=== PATIENT | male | born 1955 | race Caucasian/White ===

== ENCOUNTER 2017-06-23 08:45 | Inpatient (IN) | payer OTHER ==
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
[2017-06-29] MEDS ORDERED: CEFAZOLIN/Water 2 GM/20 ML SYRINGE ONE (07:42)
[2017-06-29] MEDS ORDERED: Tranexamic Acid 1,000 MG/100 ML BAG ONE ×2 (07:42→12:31)
[2017-06-29] MEDS ORDERED: Vancomycin HCl 1.5 GM, Admixture Fee 1 EACH in Sodium Chloride 0.9% 250 ML 300 ML IVPB SCH (07:45)
[2017-06-29] MEDS ORDERED: Ropivacaine 0.2% HCl/PF 20 ML ONE (07:54)
[2017-06-29] MEDS ORDERED: Midazolam HCl 2 mg/2 ml Vial ONE (07:54)
[2017-06-29] MEDS ORDERED: Fentanyl 100 MCG/2 ML VIAL ONE (07:54)
[2017-06-29] MEDS ORDERED: Ondansetron HCl/PF 4 MG/2 ML Vial IVP PRN ×3 (08:17→13:14)
[2017-06-29] MEDS ORDERED: Ketorolac Tromethamine 30 MG/ML VIAL IVP PRN (08:17)
[2017-06-29] MEDS ORDERED: HYDROcodone/Acetaminophen 10/325 mg Tablet PO PRN ×3 (08:17→13:14)
[2017-06-29] MEDS ORDERED: traMADol HCl 50 MG TAB PO PRN ×3 (08:17→13:14)
[2017-06-29] MEDS ORDERED: Zolpidem Tartrate 5 MG TAB PO PRN ×2 (08:17→13:14)
[2017-06-29] MEDS ORDERED: Promethazine HCl 25 MG/ML VIAL IM PRN ×2 (08:17→11:37)
[2017-06-29] MEDS ORDERED: Fentanyl 100 MCG/2 ML VIAL IV PRN (08:18)
[2017-06-29] MEDS ORDERED: Dexamethasone 20 MG/5 ML VIAL ONE (09:51)
[2017-06-29] MEDS ORDERED: Ondansetron HCl/PF 4 MG/2 ML Vial ONE (09:51)
[2017-06-29] MEDS ORDERED: Propofol 200 MG/20 ML VIAL ONE (09:51)
[2017-06-29] MEDS ORDERED: Lidocaine 2% PF 10 ML AMP (For Epidural Use) ONE (09:51)
[2017-06-29] MEDS ORDERED: Ketorolac Tromethamine 30 MG/ML VIAL ONE (09:51)
[2017-06-29] MEDS ORDERED: Bupivacaine 0.25% HCL 30 ML VIAL ONE (10:20)
[2017-06-29] MEDS ORDERED: Lidocaine 2% w/Epinephrine 1:200K 20 ML VIAL ONE (10:20)
[2017-06-29] MEDS ORDERED: HYDROmorphone 2 MG/ML VIAL SLOW IVP PRN (11:37)
[2017-06-29] MEDS ORDERED: Promethazine HCl 25 MG/ML VIAL SLOW IVP PRN ×2 (11:37→13:14)
[2017-06-29] MEDS ORDERED: Tranexamic Acid 1,000 MG in Sodium Chloride 0.9% 100 ML IVPB SCH ×2 (11:45→13:14)
--- NOTE | 2017-06-29 12:07 | OP ---
DATE OF PROCEDURE: 06/29/2017 PREOPERATIVE DIAGNOSIS: End-stage tricompartmental osteoarthritis, left knee. POSTOPERATIVE DIAGNOSIS: End-stage tricompartmental osteoarthritis, left knee. OPERATIVE PROCEDURE: Cemented cruciate-sparing computer-assisted navigated left total knee arthropl jake. SURGEON: Prateek Crawford M.D. PUBLIC ADDRESS SYSTEM INSTALLER: Dallas Tripathi PA-C. ANESTHESIA: General via LMA augmented with indwelling adductor canal peripheral block and single sh ot sciatic block. COMPONENTS USED: [place] [employer] cemented cruciate-sparing size 4 femoral component with cemented size 3 universal tibial baseplate, a 9 mm polyethylene fixed bearing insert, A29 patellar button. FINDINGS: End-stage severe degenerative tricompartmental disease, bone on bone arthrosis, periartic ular osteophyte formation, largest serous effusion, hypertrophic synovium. DRAINS: None. SPECIMENS: None. COMPLICATIONS: None. COUNTS: Correct. ESTIMATED BLOOD LOSS: Less than 100. TOURNIQUET TIME: 67 minutes at 300 mmHg. INDICATIONS FOR SURGERY: Wyatt is a 62-year-old white male who has had progressive left knee pain amplified with standing and walking for the last 5-7 years. She has failed conservative management and elected to proceed with total knee arthroplasty as definitive treatment of pain. PROCEDURE IN DETAIL: After informed consent was obtained in the preoperative holding area. The pat ient was taken to the operative suite where general anesthesia was induced. Once adequate level of general anesthesia was obtained, the patient was positioned and a well-padded tourniquet was placed around the left proximal thigh. The left lower extremity was then prepped and draped in the usual s terile fashion. Prior to exsanguination, a time out was called and all members of the surgical team agreed upon site, surgeon, and patient. The extremity was then exsanguinated and the tourniquet wa s raised. A midline longitudinal incision was then made directly over the patella extending two fin gerbreadths above the superior pole of the patella and two fingerbreadths inferior to the inferior p atellar pole of the patella. Deeper subcutaneous layers were dissected sharply and local bleeding w as controlled with Bovie electrocautery. A quad tendon longitudinal split was then made sharply and a median parapatellar arthrotomy was carried out both sharp and with Bovie electrocautery, carried down to one fingerbreadth medial to the tibial tubercle. The knee was then placed into flexion and the patella was everted nicely, and a copious fat pad ectomy was performed allowing for greater expo sure of the tibia. The computer-assisted distal femoral fiducial was then placed and pinned firmly, and the distal femoral cutting guide was pinned firmly into place. The oscillating saw was then us ed to remove the appropriate amount of bone. The 4-in-1 cutting block was then placed on the distal femur and the oscillating saw was used to remove the appropriate amount of bone off of the anterior , posterior, and chamfer cuts. After completion of bone cuts, the anterior cruciate ligament was re sected sharply and the posterior cruciate ligament retractor was placed and the tibia was subluxed f or better exposure. Partial meniscectomies were carried out, and the tibial computer-assisted fiduc ial was pinned, and the cutting guide was placed. Oscillating saw was then used to remove the bone with Hohmann retractors used to take care and protect the collateral ligaments. After the tibial re section was performed, a laminar grader marker was placed in between the freshened bone cuts. The knee p laced at 90 degrees and further bilateral meniscectomies were carried out, and the curved osteotome and curettage was used to remove any excess bone spurs in the posterior compartment. The trial femo ral component, tibial baseplate were placed with the appropriate polyethylene trial insert with an a ppropriate polyethylene spacer and patellar button. The knee was taken through full range of motion with flexion and extension from 0-90 degrees and patellar broach squarely in the trochlea without a ny squinting or subluxation noted. The knee was also stable to varus and valgus stressing at 0, 15, 45, and 90 degrees of flexion. The drawer was negative. All trial components were then removed and the keel punch was used to provide the appropriate defect in the tibia with a mallet. The freshene d bone cuts were copiously irrigated with pulsatile lavage of about 1-1/2 liters to remove all exces s debris. The freshened bone cuts were then dried and with suction and lap sponge. The knee was pl aced in flexion and retractors were placed to provide access to all bone cuts. Tobramycin impregnat ed methyl methacrylate cement was then placed on the freshened bone cuts and implants which were mal leted firmly into place. Curettage and [place] elevators were used to remove any excess bone cement. The knee was placed into full extension and the patellar button was placed under compression, and t he cement was allowed to cure. Once completed, the components were again taken through full range o f motion and copious irrigation of the knee was carried out with another liter of normal saline. Al l components were inspected fully with full range of motion and varus and valgus stressing. There wa s no laxity noted and full extension was observed clinically. Primary closure was accomplished with #2 interrupted Vicryl stitch of the arthrotomy defect. This was oversewn with a #2 running Quill b arbed stitch. The subcutaneous layer was then closed with a running 0 barbed Monocryl stitch and sk in closure accomplished with a running subcuticular 3-0 Monocryl barbed Quill stitch and augmented w ith cement on the skin. Tourniquet was lowered. Good spontaneous return of distal pulses was noted clinically and a sterile dressing was applied to the incision. The procedure was terminated withou t any complications. The patient was awakened in the operative suite and taken to the recovery room in stable condition.
[2017-06-29] MEDS ORDERED: Acetaminophen 325 MG TAB PO PRN (13:14)
[2017-06-29] MEDS ORDERED: Fentanyl 100 MCG/2 ML VIAL SLOW IVP PRN ×2 (13:14)
[2017-06-29] MEDS ORDERED: diphenhydrAMINE 25 MG CAP PO PRN (13:14)
[2017-06-29] MEDS ORDERED: Ketorolac Tromethamine 30 MG/ML VIAL IVP SCH (14:00)
[2017-06-29] MEDS: Sodium Chloride 0.9% 1,000 ML IV SCH ×2 (14:44→20:28)
--- NOTE | 2017-06-29 15:57 | RAD ---
RADIOGRAPH LEFT KNEE TWO VIEWS: History: 62-year-old female with left knee pain, status post surgery. FINDINGS: Metallic prostheses cover the articular surfaces of the distal femur and tibial plateau. Resurfacing changes of the posterior aspect of the patella. Moderate amount of joint fluid with subcutaneous em physema and gas in the joint space, especially suprapatellar region, anteriorly. IMPRESSION: Immediately status post total left knee replacement arthroplasty. POS: [facility]
[2017-06-29] MEDS: CEFAZOLIN/Water 2 GM/20 ML SYRINGE SLOW IVP SCH (16:34)
[2017-06-29 17:28] LABS: Troponin I Less than 0.010 ng/mL (< 0.028)
--- NOTE | 2017-06-29 18:00 | PDOC.PN ---
- Subjective Encounter Start Date: 06/29/17 Encounter Start Time: 18:01 Pt seen for managment of medical comorbidities, including tachycardia. Patient denies chest pain or shortness of breath. Reports pain at surgical site as 2/ 10. denies palpitations. - Objective MAR Reviewed: Yes Vital Signs & Weight: Weight Weight 164 lb EKG Reviewed by me: Yes (EKG: sinus tachycardia) Phys Exam - Physical Examination Constitutional: NAD HEENT: sclera anicteric, oral pharynx no lesions Dry mucosae Neck: supple Respiratory: no wheezing, no rales, no rhonchi, clear to auscultation bilateral S1, S2, tachy, regular Gastrointestinal: soft, positive bowel sounds Musculoskeletal: pulses present s/p L knee surgery Neurological: moves all 4 limbs Psychiatric: normal affect Skin: no rash, normal turgor, cap refill <2 seconds Dx/Plan (1) Tachycardia Code(s): R00.0 - TACHYCARDIA, UNSPECIFIED Status: Acute (2) Arthritis Code(s): M19.90 - UNSPECIFIED OSTEOARTHRITIS, UNSPECIFIED SITE Status: Chronic - Plan * . Check TSH. First troponin normal, recheck. Pt denies any chest pain or palpitations. Clinically appears to be dehydrated, continue IV fluids. Review of Systems - Review of Systems Constitutional: negative: Fever, Chills, Sweats, Weakness, Malaise Respiratory: negative: Cough, Dry, Shortness of Breath, Hemoptysis, SOB with Excertion, Pleuritic Pain, Sputum, Wheezing Cardiovascular: negative: Chest Pain, Palpitations, Orthopnea, Paroxysmal Noc. Dyspnea, Edema, Light Headedness Musculoskeletal: Other (knee pain) - Medications/Allergies Allergies/Adverse Reactions: Allergies Allergy/AdvReac Type Severity Reaction Status Date / Time No Known Allergies Allergy Unverified 06/23/17 09:29 Medications: Current Medications Acetaminophen (Tylenol) 650 mg PO Q4H PRN PRN Reason: SHETH/ T > 101F; Mild Pain (1-3) Hydrocodone Bitart/Acetaminophen ([place] 10/325) 1 tab PO Q4H PRN PRN Reason: Pain (1-3) Last Admin: 06/29/17 16:25 Dose: 1 tab Hydrocodone Bitart/Acetaminophen ([place]vo 10/325) 2 tab PO Q4H PRN PRN Reason: PAIN (4-6) Aspirin (Aspirin Chewable) 81 mg PO BID [facility] Calcium/Vitamin D (Caltrate 600 + Vit D) 4 tab PO DAILY [facility] Cefazolin Sodium (Ancef) 2 gm SLOW IVP Q8H [facility] Stop: 06/30/17 00:01 Last Admin: 06/29/17 16:34 Dose: 2 gm Diphenhydramine HCl (Benadryl) 25 mg PO Q6H PRN PRN Reason: Itching Fentanyl (Sublimaze) 50 mcg IV Q1H PRN PRN Reason: BT PAIN Fentanyl (Sublimaze) 100 mcg SLOW IVP Q1H PRN PRN Reason: Severe Pain (7-10) Ferrous Gluconate (Fergon) 324 mg PO BID [facility] Fish Oil (Fish Oil) 2,000 mg PO DAILY [facility] Ropivacaine 250 ml/ Device 250 mls @ 0 mls/hr NERVE BLCK INF [facility] PRN Reason: As Directed Sodium Chloride (Normal Saline 0.9%) 1,000 mls @ 100 mls/hr IV .Q10H [facility] Last Admin: 06/29/17 14:44 Dose: 1,000 mls Vancomycin HCl 1.5 gm/ Sodium (Chloride) 300 mls @ 200 mls/hr IVPB ONE [facility] Stop: 06/29/17 23:59 Iron/Minerals/Multivitamins (Theragran M) 1 tab PO DAILY [facility] Ketorolac Tromethamine (Toradol) 15 mg IVP Q6H PRN PRN Reason: Moderate Pain (4-6) Stop: 07/02/17 08:18 Ketorolac Tromethamine (Toradol) 30 mg IVP Q8H [facility] Stop: 07/04/17 20:01 Loratadine (Claritin) 10 mg PO DAILY [facility] Ondansetron HCl (Zofran) 4 mg IVP Q6H PRN PRN Reason: Nausea/Vomiting Promethazine HCl (Phenergan) 12.5 mg IM Q4H PRN PRN Reason: Nausea Promethazine HCl (Phenergan) 12.5 mg SLOW IVP Q4H PRN PRN Reason: Nausea/Vomiting Senna/Docusate Sodium (Senokot S) 2 tab PO BID [facility] Sodium Chloride (Flush - Normal Saline) 10 ml IVF Q12HR [facility] Last Admin: 06/29/17 14:40 Dose: Not Given Sodium Chloride (Flush - Normal Saline) 10 ml IVF PRN PRN PRN Reason: Saline Flush Tramadol HCl (Ultram) 50 mg PO Q6H PRN PRN Reason: Mild Pain (1-3) Tramadol HCl (Ultram) 100 mg PO Q6H PRN PRN Reason: Moderate Pain 4-6 Zinc Sulfate (Zinc Sulfate) 220 mg PO DAILY [facility] Zolpidem Tartrate (Ambien) 5 mg PO HSPRN PRN PRN Reason: Insomnia
[2017-06-29 18:40] LABS: #Lymphocytes 0.4 thou/uL (1.20-3.40); #Monocytes 0.1 thou/uL (0.11-0.59); #Neutrophils 9.5 thou/uL (1.40-6.50); %Basophils 0.1 % (0.0-1.0); %Eosinophils 0.1 % (0.0-10.0); %Lymphocytes 4.3 % (21.0-51.0); %Monocytes 0.7 % (0.0-10.0); Hematocrit 44.6 % (42.0-52.0); Mean Platelet Volume 9.8 fL (7.4-10.4); Red Blood Cell (RBC) Count 4.93 mill/uL (4.70-6.10)
[2017-06-29 19:03] LABS: ALT (SGPT) 24 U/L (8-55); AST (SGOT) 31 U/L (5-34); Alkaline Phosphatase 81 U/L (40-150); Anion Gap 13 mmol/L (10-20); BUN (Urea Nitrogen) 19 mg/dL (8.4-25.7); Bilirubin, Total 0.2 mg/dL (0.2-1.2); Calc. Creatinine Clearance 71 mL/min (70-130); Calcium 8.6 mg/dL (7.8-10.44); Carbon Dioxide 21 mmol/L (23-31); Chloride 108 mmol/L (98-107); Estimated GFR-MDRD 67; Protein, Total 6.5 g/dL (5.8-8.1)
[2017-06-29 19:44] LABS: Lactic Acid - Sepsis 1.5 mmol/L (0.5-2.2)
[2017-06-29] MEDS ORDERED: Vancomycin HCl 1.5 GM in Sodium Chloride 0.9% 250 ML 300 ML IVPB SCH (20:00)
[2017-06-29] MEDS: Ferrous Gluconate 324 MG TAB PO SCH (20:28)
[2017-06-29] MEDS: Senokot S 8.6-50 MG TAB PO SCH (20:29)
[2017-06-29] MEDS: Ketorolac Tromethamine 30 MG/ML VIAL IVP SCH (20:30)
[2017-06-29] MEDS: Ropivacaine HCl/PF 250 ML in Premix Bag 1 BAG NERVE BLCK SCH (20:59)
[2017-06-30] MEDS: CEFAZOLIN/Water 2 GM/20 ML SYRINGE SLOW IVP SCH (00:36)
[2017-06-30] MEDS: Ketorolac Tromethamine 30 MG/ML VIAL IVP SCH ×3 (05:00→20:52)
[2017-06-30 07:10] LABS: Hematocrit 38.7 % (42.0-52.0); Mean Platelet Volume 10.5 fL (7.4-10.4); Red Blood Cell (RBC) Count 4.13 mill/uL (4.70-6.10); White Blood Cell (WBC) Count 12.1 thou/uL (4.8-10.8)
--- NOTE | 2017-06-30 08:41 | PDOC.PN ---
- Subjective Encounter Start Date: 06/30/17 Encounter Start Time: 08:39 Subjective: feels well. no chest pain/SOB.no fever/chills. -: pain controlled better - Objective MAR Reviewed: Yes Vital Signs & Weight: Vital Signs (12 hours) Temp Pulse Resp BP Pulse Ox 06/30/17 04:00 97.8 F 74 18 158/92 H 97 06/30/17 00:31 97.8 F 100 18 146/88 H 94 L Weight Weight 164 lb I&O: 06/29/17 06/30/17 07/01/17 06:59 06:59 06:59 Intake Total 3172 Output Total 800 Balance 2372 Result Diagrams: 06/30/17 06:05 06/29/17 18:28 Additional Labs: Laboratory Tests 06/29/17 06/29/17 06/29/17 16:43 18:28 18:28 WBC 10.0 Plt Count 141 Lactic Acid Troponin I Less than 0.010 TSH 3rd Generation 0.7831 06/29/17 06/30/17 19:16 06:05 WBC 12.1 H Plt Count 126 L Lactic Acid 1.5 Troponin I TSH 3rd Generation Phys Exam - Physical Examination Constitutional: NAD HEENT: PERRLA, moist MMs, sclera anicteric, oral pharynx no lesions Neck: no nodes, no JVD, supple, full ROM Respiratory: no wheezing, no rales, no rhonchi, clear to auscultation bilateral Cardiovascular: RRR, no significant murmur, no rub, gallop Gastrointestinal: soft, non-tender, no distention, positive bowel sounds Musculoskeletal: no edema, pulses present s/p L TKR Neurological: non-focal, normal sensation, moves all 4 limbs Psychiatric: normal affect, A&O x 3 Skin: no rash Dx/Plan (1) Leucocytosis Code(s): D72.829 - ELEVATED WHITE BLOOD CELL COUNT, UNSPECIFIED Status: Acute Comment: Likley reactive (2) Thrombocytopenia Code(s): D69.6 - THROMBOCYTOPENIA, UNSPECIFIED Status: Acute Comment: Likley due to ASA.monitor (3) Tachycardia Code(s): R00.0 - TACHYCARDIA, UNSPECIFIED Status: Resolved (4) Arthritis Code(s): M19.90 - UNSPECIFIED OSTEOARTHRITIS, UNSPECIFIED SITE Status: Chronic - Plan plan discussed w/ family, PT/OT, social services counselor, out of bed/ambulate, DVT proph w/SCDs Tachycardia resolved.LA NL. no evidence of sepsis.clinically stable -: cardiac enzymes negative.UA checked & clean. -: monitor WBC & platelets. -: OT/PT/pain control per primary team. -: will follow * . Review of Systems - Review of Systems Constitutional: negative: Fever, Chills, Sweats, Weakness, Malaise, Other ENT: negative: Ear Pain, Ear Discharge, Nose Pain, Nose Discharge, Nose Congestion, Mouth Pain, Mouth Swelling, Throat Pain, Throat Swelling, Other Respiratory: negative: Cough, Dry, Shortness of Breath, Hemoptysis, SOB with Excertion, Pleuritic Pain, Sputum, Wheezing Cardiovascular: negative: Chest Pain, Palpitations, Orthopnea, Paroxysmal Noc. Dyspnea, Edema, Light Headedness, Other Gastrointestinal: negative: Nausea, Vomiting, Abdominal Pain, Diarrhea, Constipation, Melena, Hematochezia, Other Genitourinary: negative: Dysuria, Frequency, Incontinence, Hematuria, Retention , Other Musculoskeletal: negative: Neck Pain, Shoulder Pain, Arm Pain, Back Pain, Hand Pain, Leg Pain, Foot Pain, Other Skin: negative: Rash, Lesions, [place], Bruising, Other Neurological: negative: Weakness, Numbness, Incoordination, Change in Speech, Confusion, Seizures, Other - Medications/Allergies Allergies/Adverse Reactions: Allergies Allergy/AdvReac Type Severity Reaction Status Date / Time No Known Allergies Allergy Unverified 06/23/17 09:29 Medications: Current Medications Acetaminophen (Tylenol) 650 mg PO Q4H PRN PRN Reason: SHETH/ T > 101F; Mild Pain (1-3) Hydrocodone Bitart/Acetaminophen ([place] 10/325) 1 tab PO Q4H PRN PRN Reason: Pain (1-3) Last Admin: 06/29/17 16:25 Dose: 1 tab Hydrocodone Bitart/Acetaminophen ([place] 10/325) 2 tab PO Q4H PRN PRN Reason: PAIN (4-6) Aspirin (Aspirin Chewable) 81 mg PO BID [facility] Last Admin: 06/29/17 20:29 Dose: 81 mg Calcium/Vitamin D (Caltrate 600 + Vit D) 4 tab PO DAILY [facility] Diphenhydramine HCl (Benadryl) 25 mg PO Q6H PRN PRN Reason: Itching Fentanyl (Sublimaze) 50 mcg IV Q1H PRN PRN Reason: BT PAIN Fentanyl (Sublimaze) 100 mcg SLOW IVP Q1H PRN PRN Reason: Severe Pain (7-10) Ferrous Gluconate (Fergon) 324 mg PO BID [facility] Last Admin: 06/29/17 20:28 Dose: 324 mg Fish Oil (Fish Oil) 2,000 mg PO DAILY [facility] Ropivacaine 250 ml/ Device 250 mls @ 0 mls/hr NERVE BLCK INF [facility] PRN Reason: As Directed Last Admin: 06/29/17 20:59 Dose: 250 mls Sodium Chloride (Normal Saline 0.9%) 1,000 mls @ 100 mls/hr IV .Q10H [facility] Last Admin: 06/29/17 20:28 Dose: 1,000 mls Iron/Minerals/Multivitamins (Theragran M) 1 tab PO DAILY [facility] Ketorolac Tromethamine (Toradol) 15 mg IVP Q6H PRN PRN Reason: Moderate Pain (4-6) Stop: 07/02/17 08:18 Ketorolac Tromethamine (Toradol) 30 mg IVP Q8H [facility] Stop: 07/04/17 20:01 Last Admin: 06/30/17 05:00 Dose: 30 mg Loratadine (Claritin) 10 mg PO DAILY [facility] Ondansetron HCl (Zofran) 4 mg IVP Q6H PRN PRN Reason: Nausea/Vomiting Promethazine HCl (Phenergan) 12.5 mg IM Q4H PRN PRN Reason: Nausea Promethazine HCl (Phenergan) 12.5 mg SLOW IVP Q4H PRN PRN Reason: Nausea/Vomiting Senna/Docusate Sodium (Senokot S) 2 tab PO BID [facility] Last Admin: 06/29/17 20:29 Dose: 2 tab Sodium Chloride (Flush - Normal Saline) 10 ml IVF Q12HR [facility] Last Admin: 06/29/17 20:34 Dose: Not Given Sodium Chloride (Flush - Normal Saline) 10 ml IVF PRN PRN PRN Reason: Saline Flush Tramadol HCl (Ultram) 50 mg PO Q6H PRN PRN Reason: Mild Pain (1-3) Tramadol HCl (Ultram) 100 mg PO Q6H PRN PRN Reason: Moderate Pain 4-6 Zinc Sulfate (Zinc Sulfate) 220 mg PO DAILY [facility] Zolpidem Tartrate (Ambien) 5 mg PO HSPRN PRN PRN Reason: Insomnia
[2017-06-30] MEDS ORDERED: ZINC GLUCONATE 100 MG PO SCH (09:00)
[2017-06-30] MEDS: Calcium Carbonate + Vit D 1 TAB PO SCH (09:12)
[2017-06-30] MEDS: Ferrous Gluconate 324 MG TAB PO SCH ×2 (09:12→20:53)
[2017-06-30] MEDS: Zinc Sulfate 220 MG CAP PO SCH (09:12)
[2017-06-30] MEDS: Fish Oil 1,000 MG CAP PO SCH (09:13)
[2017-06-30] MEDS: Loratadine 10 MG TAB PO SCH (09:13)
[2017-06-30] MEDS: Senokot S 8.6-50 MG TAB PO SCH ×2 (09:13→20:54)
[2017-06-30] MEDS: Multivitamin W/ Minerals 1 TAB PO SCH (09:14)
[2017-06-30] MEDS: Sodium Chloride 0.9% 1,000 ML IV SCH ×2 (09:18→19:51)
--- NOTE | 2017-06-30 12:00 | EKG ---
Test Reason : STAT Blood Pressure : / mmHG Vent. Rate : 119 BPM Atrial Rate : 119 BPM P-R Int : 178 ms QRS Dur : 088 ms QT Int : 306 ms P-R-T Axes : 031 -04 016 degrees QTc Int : 430 ms Sinus tachycardia Possible Inferior infarct , age undetermined Anterolateral infarct (cited on or before 23-JUN-2017) Abnormal ECG When compared with ECG of 23-JUN-2017 12:05, Vent. rate has increased BY 58 BPM Borderline criteria for Inferior infarct are now Present Questionable change in initial forces of Anterolateral leads Confirmed by DR. Minoo HERNANDEZ ([id number]) on 06/30/2017 12:00:02 PM Referred By: GUILLE Confirmed By:DR. Minoo HERNANDEZ
[2017-06-30 12:36] VITALS: BMI 26.4
[2017-06-30 12:42] LABS: Bilirubin Negative (Negative); Blood, Urine Negative (Negative); Glucose, Urine (Dipstick) Negative (Negative); Ketone, Urine Negative (Negative); Nitrite Negative (Negative); Protein, Urine (Dipstick) Negative (Neg-Trace); Urobilinogen 0.2 mg/dL (0.2-1.0)
[2017-06-30] MEDS: HYDROcodone/Acetaminophen 10/325 mg Tablet PO PRN ×3 (14:37→22:49)
[2017-06-30] MEDS: Ropivacaine HCl/PF 250 ML in Premix Bag 1 BAG NERVE BLCK SCH (22:50)
[2017-07-01] MEDS: Sodium Chloride 0.9% 1,000 ML IV SCH (03:49)
[2017-07-01] MEDS: Ketorolac Tromethamine 30 MG/ML VIAL IVP SCH ×2 (05:00→12:07)
[2017-07-01] MEDS: HYDROcodone/Acetaminophen 10/325 mg Tablet PO PRN ×3 (06:09→14:16)
[2017-07-01 06:40] LABS: #Eosinphils 0.1 thou/uL (0.0-0.7); #Lymphocytes 0.9 thou/uL (1.20-3.40); #Monocytes 0.6 thou/uL (0.11-0.59); %Basophils 0.2 % (0.0-1.0); %Eosinophils 1.4 % (0.0-10.0); %Lymphocytes 16.2 % (21.0-51.0); %Monocytes 10.4 % (0.0-10.0); Hematocrit 34.8 % (42.0-52.0); Mean Platelet Volume 10.3 fL (7.4-10.4); Red Blood Cell (RBC) Count 3.71 mill/uL (4.70-6.10); White Blood Cell (WBC) Count 5.6 thou/uL (4.8-10.8)
[2017-07-01 06:58] LABS: Anion Gap 7 mmol/L (10-20); BUN (Urea Nitrogen) 13 mg/dL (8.4-25.7); Calc. Creatinine Clearance 86 mL/min (70-130); Calcium 9.4 mg/dL (7.8-10.44); Carbon Dioxide 29 mmol/L (23-31); Chloride 106 mmol/L (98-107); Estimated GFR-MDRD 84
[2017-07-01] MEDS: Ferrous Gluconate 324 MG TAB PO SCH (08:28)
[2017-07-01] MEDS: Calcium Carbonate + Vit D 1 TAB PO SCH (08:28)
[2017-07-01] MEDS: Fish Oil 1,000 MG CAP PO SCH (08:29)
[2017-07-01] MEDS: Zinc Sulfate 220 MG CAP PO SCH (08:30)
[2017-07-01] MEDS: Loratadine 10 MG TAB PO SCH (08:30)
[2017-07-01] MEDS: Multivitamin W/ Minerals 1 TAB PO SCH (08:30)
[2017-07-01] MEDS: Senokot S 8.6-50 MG TAB PO SCH (08:31)
[2017-07-01 12:59] VITALS: BP 129/72; TEMP 98
--- NOTE | 2017-07-01 15:04 | PDOC.PN ---
- Subjective Encounter Start Date: 07/01/17 Encounter Start Time: 15:02 Subjective: feels well. no new complaints. no chest pain/discomfort/SOB. no F/C - Objective MAR Reviewed: Yes Vital Signs & Weight: Vital Signs (12 hours) Temp Pulse Resp BP Pulse Ox 07/01/17 12:58 98.0 F 116 H 12 129/72 96 07/01/17 08:00 97.8 F 84 16 149/83 H 96 07/01/17 04:00 98.2 F 85 18 158/81 H 97 Weight Admit Weight 164 lb Weight 164 lb I&O: 06/30/17 07/01/17 07/02/17 06:59 06:59 06:59 Intake Total 3172 1644 Output Total 800 Balance 2372 1644 Result Diagrams: 07/01/17 06:07 07/01/17 06:07 Additional Labs: Laboratory Tests 06/29/17 06/29/17 06/29/17 16:43 18:28 18:28 WBC 10.0 Plt Count 141 Troponin I Less than 0.010 TSH 3rd Generation 0.7831 06/30/17 07/01/17 06:05 06:07 WBC 12.1 H 5.6 Plt Count 126 L 93 L Troponin I TSH 3rd Generation Phys Exam - Physical Examination Constitutional: NAD HEENT: PERRLA, moist MMs, sclera anicteric, oral pharynx no lesions Neck: no nodes, no JVD, supple, full ROM Respiratory: no wheezing, no rales, no rhonchi, clear to auscultation bilateral Cardiovascular: RRR, no significant murmur Gastrointestinal: soft, non-tender, no distention, positive bowel sounds Musculoskeletal: no edema, pulses present Neurological: non-focal, normal sensation, moves all 4 limbs Psychiatric: normal affect, A&O x 3 Skin: no rash Dx/Plan (1) Leucocytosis Code(s): D72.829 - ELEVATED WHITE BLOOD CELL COUNT, UNSPECIFIED Status: Resolved Comment: Likley reactive (2) Thrombocytopenia Code(s): D69.6 - THROMBOCYTOPENIA, UNSPECIFIED Status: Acute Comment: Claire due to ASA.monitor (3) Tachycardia Code(s): R00.0 - TACHYCARDIA, UNSPECIFIED Status: Resolved (4) Arthritis Code(s): M19.90 - UNSPECIFIED OSTEOARTHRITIS, UNSPECIFIED SITE Status: Chronic - Plan Pt instructed to hold ASA for now and be mobile at home. -: Being Dced by primary team.OK w IM team. -: will get outpatient CBC done to check on platelets.no bleed.Stable -: no sign/symptom of infection * . Review of Systems - Review of Systems Constitutional: negative: Fever, Chills, Sweats, Weakness, Malaise, Other Respiratory: negative: Cough, Dry, Shortness of Breath, Hemoptysis, SOB with Excertion, Pleuritic Pain, Sputum, Wheezing Cardiovascular: negative: Chest Pain, Palpitations, Orthopnea, Paroxysmal Noc. Dyspnea, Edema, Light Headedness, Other Gastrointestinal: negative: Nausea, Vomiting, Abdominal Pain, Diarrhea, Constipation, Melena, Hematochezia, Other Genitourinary: negative: Dysuria, Frequency, Incontinence, Hematuria, Retention , Other Musculoskeletal: negative: Neck Pain, Shoulder Pain, Arm Pain, Back Pain, Hand Pain, Leg Pain, Foot Pain, Other Neurological: negative: Weakness, Numbness, Incoordination, Change in Speech, Confusion, Seizures, Other - Medications/Allergies Allergies/Adverse Reactions: Allergies Allergy/AdvReac Type Severity Reaction Status Date / Time No Known Allergies Allergy Unverified 06/23/17 09:29
== END 2017-07-01 14:22 | disposition home or self-care (01) | DRG 470 ==
LOC: SJJU 06-29 07:05 → EDSTATUS 06-29 08:45 → SJJU 06-29 13:05
PROVIDERS: ADMIT Orthopaedic Surgery; ATTEND Orthopaedic Surgery
PROC: 0SRD0J9 Replacement of Left Knee Joint with Synthetic Substitute, Cemented, Open Approach (ICD-10-PCS; principal; 2017-06-29)
PROC: 3E0T3BZ Introduction of Anesthetic Agent into Peripheral Nerves and Plexi, Percutaneous Approach (ICD-10-PCS; 2017-06-29)
DX: M17.12 Unilateral primary osteoarthritis, left knee (principal); D69.6 Thrombocytopenia, unspecified; Z87.820 Personal history of traumatic brain injury; F41.9 Anxiety disorder, unspecified; F32.9 Major depressive disorder, single episode, unspecified; E78.2 Mixed hyperlipidemia; R00.0 Tachycardia, unspecified; Z89.022 Acquired absence of left finger(s); E86.0 Dehydration
CPT/HCPCS: 36415; 80048; 80053; 81003; 83605; 84443; 84484; 85025; 85027; 93005; 93010; A4216; C1713; C1776; G8978-GP-CM; G8979-GP-CJ; J1100; J1170; J1885; J2001; J2250; J2405; J2704; J2795; J3010; J3370; J7050; S0020

== ENCOUNTER 2017-06-23 08:51 | Outpatient (CLI) | payer OTHER ==
[2017-06-23 14:19] LABS: Prothrombin Time 12.4 SEC (12.0-14.7)
[2017-06-23 14:21] LABS: Hematocrit 46.7 % (42.0-52.0); Mean Platelet Volume 10.4 fL (7.4-10.4); Red Blood Cell (RBC) Count 5.01 mill/uL (4.70-6.10); White Blood Cell (WBC) Count 4.7 thou/uL (4.8-10.8)
[2017-06-23 14:33] LABS: Anion Gap 10 mmol/L (10-20); BUN (Urea Nitrogen) 15 mg/dL (8.4-25.7); Calc. Creatinine Clearance 0 mL/min (70-130); Calcium 9.2 mg/dL (7.8-10.44); Carbon Dioxide 27 mmol/L (23-31); Chloride 106 mmol/L (98-107); Estimated GFR-MDRD 83
[2017-06-23 14:41] LABS: Bilirubin Negative (Negative); Blood, Urine Negative (Negative); Glucose, Urine (Dipstick) Negative (Negative); Ketone, Urine Negative (Negative); Nitrite Negative (Negative); Protein, Urine (Dipstick) Negative (Neg-Trace); Urobilinogen 0.2 mg/dL (0.2-1.0)
--- NOTE | 2017-06-23 15:05 | EKG ---
Test Reason : Blood Pressure : / mmHG Vent. Rate : 061 BPM Atrial Rate : 061 BPM P-R Int : 152 ms QRS Dur : 090 ms QT Int : 398 ms P-R-T Axes : 040 019 016 degrees QTc Int : 400 ms Normal sinus rhythm Cannot rule out Anterior infarct , age undetermined Abnormal ECG No previous ECGs available Confirmed by MITCH BURGOS ([id number]) on 06/23/2017 3:05:16 PM Referred By: Virginia CORONA Confirmed By:MITCH BURGOS
== END 2017-06-23 08:52 | disposition home or self-care (01) ==
LOC: LABBT 08:51
PROVIDERS: ATTEND Orthopaedic Surgery
DX: Z01.818 Encounter for other preprocedural examination (principal); M17.12 Unilateral primary osteoarthritis, left knee
CPT/HCPCS: 80048; 81003; 85027; 85610; 86850; 86900; 86901; 87081; 93005; 93010